=== PATIENT | female | born 1970 | race Caucasian/White ===

== ENCOUNTER 2016-04-24 11:43 | Emergency (ER) | payer SELFPAY ==
[2016-04-24 12:01] VITALS: BP 142/92
[2016-04-24] MEDS ORDERED: ONDANSETRON 4 MG TAB.RAPDIS PO ONE (12:14)
[2016-04-24] MEDS ORDERED: KETOROLAC TROMETHAMINE 60 MG/2 ML VIAL IM ONE ×2 (12:14→12:21)
[2016-04-24] MEDS ORDERED: diphenhydrAMINE HCL 50 MG/ML VIAL IM ONE (12:14)
[2016-04-24] MEDS ORDERED: diphenhydrAMINE HCL 50 MG/ML VIAL ONE (12:21)
[2016-04-24] MEDS ORDERED: ONDANSETRON 4 MG TAB.RAPDIS ONE (12:22)
--- NOTE | 2016-04-24 12:26 | ERNOTE ---
Medical Problem HPI - Narrative Date of Service: 04/24/16 - General Chief Complaint: Nausea/Vomiting Time Seen by Provider: 04/24/16 12:07 Source: patient, family Exam Limitations: no limitations - Immun/Allergies/Home Medications Allergies/Adverse Reactions: Allergies ampicillin [Ampicillin] Allergy (Severe, Verified 04/24/16 12:01) Hives Sulfa (Sulfonamide Antibiotics) [Sulfa(Sulfonamide Antibiotics)] Allergy (Severe , Verified 04/24/16 12:01) Hives Home Medications: HOME MEDICATIONS Ondansetron [Zofran Odt] 4 mg PO Q6H PRN #20 tab 04/24/16 [Last Taken Unknown] - History of Present History Narrative: Pt present to the ED with c/o nausea, vomiting, intermittent non-productive cough, feels like she was hit by a bus, headache 5-6/10 on pain scale, nasal congestion, and fatigue. Pt denies abd pain, shortness of breath, ear pain, sore throat, and vision changes. Pt states this started to occur yesterday around 19:00 and states she has a grandchild that has influenza. Pt admits to taking Tylenol this am. Pt states she has not eaten anything today and is drinking minimal amount of water and 7up. Date (Duration): 04/23/16 Time (Timing): 19:00 Timing: constant Severity: moderate Review of Systems - Review of Systems Constitutional: Present: fever, chills, diaphoresis, weakness, fatigue, malaise , decreased activity level. Absent: recent illness, weight loss, fussy EYE: Present: no symptoms reported. Absent: eye pain, eye discharge, blurred vision, double vision, vision changes ENT: Present: nose congestion. Absent: ear pain, ear discharge, nose pain, nasal drainage, sore throat Respiratory: Present: no symptoms reported, cough - intermittent non- productive. Absent: shortness of breath, orthopnea, wheezing, stridor Cardiology: Present: no symptoms reported. Absent: chest pain, palpitations, syncope, edema Gastrointestinal/Abdominal: Present: nausea, vomiting, eating less - has not had anything to eat, drinking less - is drinking minimal amount of water and 7up. Absent: diarrhea, constipation, abdominal pain Genitourinary: Present: no symptoms reported. Absent: frequency, pain, dysuria Musculoskeletal: Present: muscle pain - feels like she was hit by a bus. Absent : neck pain Skin: Present: no symptoms reported. Absent: rash, dryness, change in color Neurological: Present: headache - rates pain 5-6/10, dizziness/light-headedness , weakness. Absent: anxiety, depressed, emotional problems, numbness, tingling Endocrine: Present: no symptoms reported. Absent: excessive sweating, flushing , intolerance to heat, intolerance to cold, increased hunger, increased thirst Hematologic/Lymphatic: Present: no symptoms reported. Absent: easy bruising, easy bleeding Psych: Present: no symptoms reported. Absent: anxiety, depressed - Patient's Past Medical History Patient History - Medical: No pertinent hx Patient History - Cardiac/Respiratory: No pertinent hx Patient History - Cancer: No Hx of Cancer Patient History - Surgical Procedures: Appendectomy, Cholecystectomy, Hysterectomy, T & A - Social History Smoking Status: Current every day smoker Have you smoked in the past 12 months: Yes Physical Exam - Physical Exam General Appearance: Present: wd/wn, alert, no apparent distress. Absent: anxious, lethargic Eye Exam: Normal inspection: bilateral, PERRL: bilateral, EOMI: bilateral Ears, Nose, Throat: Present: hearing grossly normal, nasal congestion, normal pharynx, tonsillar exudate - clear. Absent: cerumen impaction, sinus pain/ drainage, tonsillar swelling, dry mucous membranes Neck: Present: normal inspection, nontender, supple, full range of motion Respiratory: Present: no respiratory distress, normal breath sounds, no accessory muscle use, chest nontender, lungs clear. Absent: respiratory distress, crackles, rales, rhonchi, stridor, wheezing Cardiovascular/Chest: Present: regular rate, rhythm, no murmur, normal peripheral pulses. Absent: tachycardia, bradycardia, irregularly irregular Gastrointestinal/Abdominal: Present: nontender, nondistended, soft, no organomegaly, abnormal bowel sounds - hyperactive bowels in right upper quadrant. Absent: tenderness, distended, guarding, rebound Back Exam: Present: normal inspection, normal range of motion, no CVA tenderness , no vertebral tenderness. Absent: decreased range of motion, muscle spasm Extremity Exam: Present: normal inspection, non-tender, no edema, normal range of motion. Absent: calf tenderness, joint swelling, extremity edema Neurological Exam: Present: alert, oriented, normal mood/affect, no motor/ sensory deficits, dye feeder II-XII nml as tested, normal cerebellar test. Absent: facial droop, motor weakness Skin Exam: Present: normal color, warm/dry. Absent: skin rash Lymphatic Exam: Present: no adenopathy ED Progress - Results and Orders Patient's Lab Results:: I have reviewed the patient's lab results. - Vital Signs Patient's Vital Signs:: I have reviewed the patient's vital signs. Vital Signs: Vital Signs 04/24/16 11:57 Temperature 36.7 C Pulse Rate 86 Respiratory 12 Rate Blood Pressure 142/92 O2 Sat by Pulse 99 Oximetry - Progress/Reassessment Chief Complaint: Nausea/Vomiting Departure - Departure Clinical Impression: Viral upper respiratory illness, Viral gastroenteritis Disposition: Home self-care Condition: Good Instructions: Upper Respiratory Infection, Adult, [id number], Viral Gastroenteritis, Adult, [id number] Additional Instructions: Please follow up with primary provider in 2-3 days take zofran as needed for nausea, increase fluid intake and rest. Prescriptions: Ondansetron [Zofran Odt] 4 mg PO Q6H PRN #20 tab PRN Reason: Nausea
== END 2016-04-24 13:12 | disposition home or self-care (01) ==
LOC: ER 11:43
DX: J06.9 Acute upper respiratory infection, unspecified (principal); B97.89 Other viral agents as the cause of diseases classified elsewhere; A08.4 Viral intestinal infection, unspecified; F17.210 Nicotine dependence, cigarettes, uncomplicated

== ENCOUNTER 2016-07-07 15:53 | Emergency (ER) | payer SELFPAY ==
--- NOTE | 2016-07-07 16:23 | ERNOTE ---
Lower Extremity HPI - General Lower Extremities Pain: foot: right Time Seen by Provider: 07/07/16 16:04 Source: patient Exam Limitations: no limitations - Immun/Allergies/Home Medications Immunizations: IMMUNIZATION HX Immunizations Up to Date Yes History of Influenza Vaccine Yes Hx Pneumococcal Vaccination Yes Allergies/Adverse Reactions: Allergies Allergy/AdvReac Type Severity Reaction Status Date / Time ampicillin [Ampicillin] Allergy Severe Hives Verified 07/07/16 16:13 Sulfa (Sulfonamide Allergy Severe Hives Verified 07/07/16 16:13 Antibiotics) [Sulfa(Sulfonamide Antibiotics)] diphenhydramine AdvReac Verified 07/07/16 16:14 [From Benadryl] Home Medications: HOME MEDICATIONS HYDROcodone/ACETAMINOPHEN [Biggers 5-325] 1 each PO Q4H #20 tablet 07/07/16 [Last Taken Unknown] Naproxen [Naprosyn] 500 mg PO BID #60 tablet 07/07/16 [Last Taken Unknown] - History of Present Illness Narrative: She was working in her yard yesterday and while working the ditch somehow managed to get her foot caught and then hyperextended her right foot and now has pain across the metatarsophalangeal joint of the right foot. She rates the pain as approximately 8 out of 10 and moderate to severe in intensity. Occurred: yesterday Location of Incident: home Method of Injury: Reports: unknown Reason for Fall: Reports: tripped Loss of Consciousness: Reports: no loss of consciousness Associated Symptoms: Reports: unable to bear weight - painful weight bearing Other Injuries: Reports: none Review of Systems - Review of Systems Constitutional: Present: See HPI EYE: Present: no symptoms reported ENT: Present: no symptoms reported Respiratory: Present: no symptoms reported Cardiology: Present: no symptoms reported Gastrointestinal/Abdominal: Present: no symptoms reported Genitourinary: Present: no symptoms reported Musculoskeletal: Present: See HPI Skin: Present: no symptoms reported Neurological: Present: no symptoms reported Endocrine: Present: no symptoms reported Hematologic/Lymphatic: Present: no symptoms reported Psych: Present: no symptoms reported - Patient's Past Medical History Patient History - Medical: No pertinent hx Patient History - Cardiac/Respiratory: No pertinent hx Patient History - Cancer: No Hx of Cancer Patient History - Surgical Procedures: Appendectomy, Cholecystectomy, Hysterectomy, T & A Patient History - Other: None LMP (females 10-50): Menopausal - Social History Living Situations: home Abuse History: No History of abuse Psych History: No pertinent hx Smoking Status: Current every day smoker Alcohol Use: none Drug Use: none - Immunizations Immunizations Up to Date: Yes Hx Pneumococcal Vaccination: Yes History of Influenza Vaccine: Yes Physical Exam - Physical Exam General Appearance: Present: wd/wn, alert, moderate distress Eye Exam: Normal inspection: bilateral, PERRL: bilateral Ears, Nose, Throat: Present: normal ENT inspection, H, normal pharynx Neck: Present: normal inspection, nontender Respiratory: Present: no respiratory distress, normal breath sounds, no accessory muscle use, chest nontender, lungs clear Cardiovascular/Chest: Present: regular rate, rhythm, no murmur, normal peripheral pulses Gastrointestinal/Abdominal: Present: normal bowel sounds, nontender, nondistended, soft, no organomegaly Rectal Exam: Present: deferred Back Exam: Present: normal inspection, normal range of motion Extremity Exam: Present: decreased range of motion, joint swelling, other - tender to palpation Neurological Exam: Present: alert, oriented, normal mood/affect Skin Exam: Present: normal color, warm/dry Lymphatic Exam: Present: no adenopathy ED Progress - Vital Signs Patient's Vital Signs:: I have reviewed the patient's vital signs. Vital Signs: Vital Signs 07/07/16 16:05 Temperature 36.7 C Pulse Rate 77 Respiratory 14 Rate Blood Pressure 145/93 O2 Sat by Pulse 100 Oximetry - X-Ray X-Ray #1 X-Ray: foot Interpretation: Reviewed by me - Progress/Reassessment Chief Complaint: Lower Extremity Pain/ Injury Progress:: Unchanged Plan - Plan Plan: No obvious fracture on x-ray. She will be given orthopedic referral with Dr. Dejesus will follow-up with him as needed. Place her on tramadol for some pain relief. Departure Clinical Impression: Right foot sprain Qualifiers: Encounter type: initial encounter Qualified Code(s): S93.601A - Unspecified sprain of right foot, initial encounter - Departure Disposition: Home self-care Condition: Good Instructions: Foot Sprain Referrals: Lucio Dejesus, PAC [[facility] - Prescriptions: HYDROcodone/ACETAMINOPHEN [Biggers 5-325] 1 each PO Q4H #20 tablet Naproxen [Naprosyn] 500 mg PO BID #60 tablet
[2016-07-07 17:08] VITALS: BP 133/93
== END 2016-07-07 17:10 | disposition home or self-care (01) ==
LOC: ER 15:53
DX: S93.601A Unspecified sprain of right foot, initial encounter (principal); F17.210 Nicotine dependence, cigarettes, uncomplicated; X50.1XXA Overexertion from prolonged static or awkward postures, initial encounter; Y93.H2 Activity, gardening and landscaping; Y92.007 Garden or yard of unspecified non-institutional (private) residence as the place of occurrence of the external cause